=== PATIENT | female | born 1945 | race Hispanic/Latino ===

== ENCOUNTER 2021-03-30 14:40 | Emergency (ER) | payer MEDICARE ==
[~2021-03-30] VITALS: Ht 154.9 cm; Wt 68.0 kg
[2021-03-30] MEDS ORDERED: ACETAMINOPHEN WITH CODEINE 1 TAB TAB PO ONE (20:00)
[2021-03-30] MEDS ORDERED: ONDANSETRON ODT 4MG TAB SL ONE (20:00)
[2021-03-30 20:45] VITALS: BP 138/74
[2021-03-30] MEDS ORDERED: ONDA4TAB10 PO (20:47)
== END 2021-03-30 21:20 | disposition home or self-care (01) ==
LOC: EDH 14:40
DX: S29.011A Strain of muscle and tendon of front wall of thorax, initial encounter (principal); R11.2 Nausea with vomiting, unspecified; R42 Dizziness and giddiness; E11.9 Type 2 diabetes mellitus without complications; M81.0 Age-related osteoporosis without current pathological fracture; Z88.1 Allergy status to other antibiotic agents; Z91.041 Radiographic dye allergy status; Z79.899 Other long term (current) drug therapy; Z85.3 Personal history of malignant neoplasm of breast; Z87.442 Personal history of urinary calculi; W18.39XA Other fall on same level, initial encounter; Y93.89 Activity, other specified; Y92.89 Other specified places as the place of occurrence of the external cause; Y99.8 Other external cause status
CPT/HCPCS: 70450; 71100; 71250; 72125; 74176

== ENCOUNTER 2022-02-03 23:25 | Emergency (ER) | payer MEDICARE ==
[~2022-02-03] VITALS: Ht 154.9 cm; Wt 63.5 kg
[~2022-02-03 23:25] MED LIST: ONDA4TAB10 PO
[2022-02-03] MEDS: DiphenhydrAMINE HCL 50 MG/ML VIAL IV ONE (23:56)
[2022-02-03] MEDS: FAMOTIDINE 20MG VIAL IV ONE ×2 (23:56)
[2022-02-03] MEDS: DiphenhydrAMINE HCL 50 MG/ML VIAL ONE (23:57)
[2022-02-04 00:09] LABS: BASOPHILS % (AUTO) 0.3 % (0.0-5.0); EOSINOPHILS % (AUTO) 2.7 % (0.0-8.0); HEMATOCRIT 34.7 % (36-48); LYMPHOCYTES % (AUTO) 30.4 % (21.0-51.0); MEAN CORPUSCULAR HEMOGLOBIN 29.2 pg (27.0-33.0); MEAN CORPUSCULAR HGB CONC 32.9 g/dL (32.0-36.0); MEAN CORPUSCULAR VOLUME 88.7 fL (79-99); NEUTROPHILS % (AUTO) 60.4 % (40.0-77.0); PLATELET COUNT (AUTO) 263 K/uL (130-400); RED BLOOD CELL COUNT(AUTO) 3.91 MIL/uL (4.00-5.50); RED CELL DISTRIBUTION WIDTH 13.6 % (11.0-15.5); WHITE BLOOD COUNT (AUTO) 6.6 K/uL (4.8-10.8)
[2022-02-04 00:20] LABS: CREATININE 0.9 mg/dL (0.5-1.5); POTASSIUM 3.9 mmol/L (3.5-5.1)
[2022-02-04 00:25] LABS: ALBUMIN 3.2 g/dL (3.5-5.0); TOTAL PROTEIN, SERUM 6.9 g/dL (6.0-8.3)
[2022-02-04] MEDS ORDERED: IOHEXOL 350 MG/ML 100ML INFUS..BTL IV ONE (01:10)
[2022-02-04] MEDS ORDERED: METF-444 PO (01:19)
[2022-02-04] MEDS ORDERED: LOSA50TA64 PO (01:19)
[2022-02-04] MEDS ORDERED: ATOR-2 PO (01:19)
[2022-02-04 01:31] LABS: APPEARANCE,URINE CLOUDY (CLEAR); BILIRUBIN,URINE NEGATIVE (NEGATIVE); COLOR,URINE LIGHT-YELLOW (YELLOW); GLUCOSE, URINE (UA) 200 mg/dL (NEGATIVE); KETONES,URINE NEGATIVE (NEGATIVE); LEUKOCYTE ESTERASE ,URINE 500 Leu/uL (NEGATIVE); NITRATE,URINE 2+ (NEGATIVE); OCCULT BLOOD,URINE SMALL (NEGATIVE); PROTEIN,URINE NEGATIVE (NEGATIVE); UROBILINOGEN,URINE 0.2 mg/dL (0.2-1.0)
[2022-02-04] MEDS: HYDROXYZINE 25 MG TABLET PO ONE (01:33)
[2022-02-04 01:37] LABS: BACTERIA,URINE FEW /HPF (None Seen); MUCUS,URINE RARE LPF (None Seen); SQUAMOUS EPITHELIAL CELL,UR FEW /HPF (0-2); WBC,URINE 51-100 /HPF (0-1)
[2022-02-04] MEDS: CEFTRIAXONE 1G VIAL IVP ONE (01:54)
[2022-02-04 03:35] VITALS: BP 157/71
[2022-02-04] MEDS ORDERED: HYD25 PO (03:40)
== END 2022-02-04 03:49 | disposition home or self-care (01) ==
LOC: EDH 23:25
DX: L29.9 Pruritus, unspecified (principal); T46.6X5A Adverse effect of antihyperlipidemic and antiarteriosclerotic drugs, initial encounter; E11.9 Type 2 diabetes mellitus without complications; I10 Essential (primary) hypertension; E78.5 Hyperlipidemia, unspecified; Z88.8 Allergy status to other drugs, medicaments and biological substances; Z79.899 Other long term (current) drug therapy; Z79.84 Long term (current) use of oral hypoglycemic drugs; Z98.890 Other specified postprocedural states; Y92.89 Other specified places as the place of occurrence of the external cause
CPT/HCPCS: 99285; 96374; 96375 ×2; 82550; 80053; 85025; 87077; 87088; 87186; 81001; 36415; 70450; 71045; 72170; 93005; J1200; J3490; Q9967

== ENCOUNTER 2022-11-08 19:36 | Inpatient (IN) | payer OTHER, MEDICARE ==
[~2022-11-08] VITALS: Ht 154.9 cm; Wt 64.0 kg
[~2022-11-08 19:36] MED LIST changes: +ATOR-2 PO; +HYD25 PO; +LOSA50TA64 PO; +METF-444 PO
[2022-11-08 20:39] LABS: BASOPHILS % (AUTO) 0.3 % (0.0-5.0); EOSINOPHILS % (AUTO) 1.4 % (0.0-8.0); HEMATOCRIT 36.7 % (36-48); LYMPHOCYTES % (AUTO) 22.4 % (21.0-51.0); MEAN CORPUSCULAR HEMOGLOBIN 28.2 pg (27.0-33.0); MEAN CORPUSCULAR HGB CONC 32.2 g/dL (32.0-36.0); MEAN CORPUSCULAR VOLUME 87.8 fL (79-99); MONOCYTES % (AUTO) 4.9 % (3.0-13.0); NEUTROPHILS % (AUTO) 70.8 % (40.0-77.0); PLATELET COUNT (AUTO) 291 K/uL (130-400); RED BLOOD CELL COUNT(AUTO) 4.18 MIL/uL (4.00-5.50); RED CELL DISTRIBUTION WIDTH 14.1 % (11.0-15.5); WHITE BLOOD COUNT (AUTO) 8.8 K/uL (4.8-10.8)
[2022-11-08 20:50] LABS: INR 0.93 (0.85-1.15); POTASSIUM 4.1 mmol/L (3.5-5.1); PROTHROMBIN TIME 10.3 SEC (9.6-11.6)
[2022-11-08 20:51] LABS: PARTIAL THROMBOPLASTIN TIME 28.6 SEC (26.3-35.5)
[2022-11-08 20:54] LABS: ALBUMIN 3.5 g/dL (3.5-5.0); TOTAL PROTEIN, SERUM 7.7 g/dL (6.0-8.3)
[2022-11-08 21:27] LABS: APPEARANCE,URINE CLEAR (CLEAR); BILIRUBIN,URINE NEGATIVE (NEGATIVE); COLOR,URINE LIGHT-YELLOW (YELLOW); GLUCOSE, URINE (UA) 500 mg/dL (NEGATIVE); KETONES,URINE NEGATIVE (NEGATIVE); LEUKOCYTE ESTERASE ,URINE NEGATIVE Leu/uL (NEGATIVE); NITRATE,URINE NEGATIVE (NEGATIVE); OCCULT BLOOD,URINE SMALL (NEGATIVE); PH,URINE 6.5 (5.0-8.0); PROTEIN,URINE NEGATIVE (NEGATIVE); UROBILINOGEN,URINE 0.2 mg/dL (0.2-1.0)
[2022-11-08 21:30] LABS: MUCUS,URINE RARE LPF (None Seen)
[2022-11-09] MEDS ORDERED: ACETAMINOPHEN 650 MG SUPPOSITORY RC PRN (03:00)
[2022-11-09] MEDS ORDERED: ACETAMINOPHEN 325 MG TAB PO PRN (03:00)
[2022-11-09] MEDS ORDERED: ONDANSETRON 4MG INJ IVP PRN (05:00)
[2022-11-09] MEDS ORDERED: DEXTROSE 50%-WATER 50 ML DISP.SYRIN IV PRN (05:00)
[2022-11-09] MEDS ORDERED: MAGNESIUM 2GM PREMIX 50ML 50 ML IV PRN (05:00)
[2022-11-09] MEDS ORDERED: POTASSIUM CHLORIDE 10% ELIXIR 20 MEQ/15 ML UDCUP PO PRN (05:00)
[2022-11-09] MEDS ORDERED: KCL 20 MEQ ERTAB PO PRN (05:00)
[2022-11-09] MEDS ORDERED: GLUCAGON 1MG KIT 1 MG ML IM PRN (05:00)
[2022-11-09] MEDS ORDERED: POTASSIUM CHLORIDE 20MEQ/100ML 100 ML IV PRN (05:00)
[2022-11-09] MEDS ORDERED: LACTULOSE 20 GM/30 ML UDCUP PO PRN (05:00)
[2022-11-09] MEDS ORDERED: INSULIN HUMULIN R 100 UNIT/ML 3ML SQ SCH (07:30)
[2022-11-09] MEDS: INSULIN HUMULIN R 100 UNIT/ML 3ML SQ SCH ×4 (07:30→20:40)
[2022-11-09] MEDS: ASPIRIN 81MG CHEW TAB PO SCH (08:52)
[2022-11-09] MEDS: POLYETHYLENE GLYCOL 3350 17 GM POWD.PACK PO SCH (08:52)
[2022-11-09] MEDS: FAMOTIDINE 20MG TAB PO SCH (08:52)
[2022-11-09] MEDS: CEFTRIAXONE 1G VIAL IV SCH (08:52)
[2022-11-09] MEDS: ENOXAPARIN SODIUM 40 MG/0.4 ML SYRINGE SQ SCH (08:52)
[2022-11-09] MEDS: CLOPIDOGREL 75MG TAB PO SCH (08:52)
[2022-11-09 15:30] VITALS: BP 145/68
[2022-11-09 16:28] VITALS: BP 142/61
[2022-11-09] MEDS ORDERED: SULF1TAB42 PO (16:47)
[2022-11-09 19:58] VITALS: BP 146/65
[2022-11-09] MEDS: SIMVASTATIN 20 MG TABLET PO SCH (20:39)
[2022-11-10] VITALS (7 sets, daily range): BP systolic 111–169; BP diastolic 52–83
[2022-11-10] MEDS: INSULIN HUMULIN R 100 UNIT/ML 3ML SQ SCH ×4 (05:15→20:31)
[2022-11-10 05:41] LABS: BASOPHILS % (AUTO) 0.5 % (0.0-5.0); EOSINOPHILS % (AUTO) 3.4 % (0.0-8.0); HEMATOCRIT 35.3 % (36-48); LYMPHOCYTES % (AUTO) 26.5 % (21.0-51.0); MEAN CORPUSCULAR HEMOGLOBIN 28.2 pg (27.0-33.0); MEAN CORPUSCULAR HGB CONC 31.7 g/dL (32.0-36.0); MEAN CORPUSCULAR VOLUME 88.9 fL (79-99); MONOCYTES % (AUTO) 7.5 % (3.0-13.0); NEUTROPHILS % (AUTO) 61.8 % (40.0-77.0); PLATELET COUNT (AUTO) 280 K/uL (130-400); RED BLOOD CELL COUNT(AUTO) 3.97 MIL/uL (4.00-5.50); RED CELL DISTRIBUTION WIDTH 14.1 % (11.0-15.5); WHITE BLOOD COUNT (AUTO) 6.2 K/uL (4.8-10.8)
[2022-11-10 06:10] LABS: CREATININE 0.9 mg/dL (0.5-1.5); MAGNESIUM 2.1 mg/dL (1.80-2.40); POTASSIUM 4.4 mmol/L (3.5-5.1)
[2022-11-10 06:28] LABS: HEMOGLOBIN A1C 6.6 % (4.0-6.0)
[2022-11-10] MEDS: FAMOTIDINE 20MG TAB PO SCH (09:36)
[2022-11-10] MEDS: METFORMIN HCL 500 MG TABLET PO SCH ×2 (09:36→20:31)
[2022-11-10] MEDS: ASPIRIN 81MG CHEW TAB PO SCH (09:36)
[2022-11-10] MEDS: POLYETHYLENE GLYCOL 3350 17 GM POWD.PACK PO SCH (09:36)
[2022-11-10] MEDS: LOSARTAN 50 MG TABLET PO SCH (09:36)
[2022-11-10] MEDS: CLOPIDOGREL 75MG TAB PO SCH (09:37)
[2022-11-10] MEDS: ENOXAPARIN SODIUM 40 MG/0.4 ML SYRINGE SQ SCH (09:38)
[2022-11-10] MEDS: CEFTRIAXONE 1G VIAL IV SCH (09:38)
[2022-11-10] MEDS: SIMVASTATIN 20 MG TABLET PO SCH (20:32)
[2022-11-10] MEDS ORDERED: ATORVASTATIN 40 MG TABLET PO SCH (21:00)
[2022-11-10] MEDS ORDERED: NON-FORMULARY MEDICATION 1 EACH (Atorvastatin Calcium 80 MG) PO SCH (21:00)
[2022-11-11 04:01] VITALS: BP 122/56
[2022-11-11] MEDS: INSULIN HUMULIN R 100 UNIT/ML 3ML SQ SCH ×2 (05:14→11:05)
[2022-11-11 08:00] VITALS: BP 133/60
[2022-11-11] MEDS ORDERED: ASPI-1005 PO (08:59)
[2022-11-11] MEDS ORDERED: POLY17PO4 PO (08:59)
[2022-11-11] MEDS ORDERED: CLOP-31 PO (08:59)
[2022-11-11] MEDS: ENOXAPARIN SODIUM 40 MG/0.4 ML SYRINGE SQ SCH (09:52)
[2022-11-11] MEDS: CEFTRIAXONE 1G VIAL IV SCH (09:53)
[2022-11-11] MEDS: ASPIRIN 81MG CHEW TAB PO SCH (09:53)
[2022-11-11] MEDS: METFORMIN HCL 500 MG TABLET PO SCH (09:53)
[2022-11-11] MEDS: FAMOTIDINE 20MG TAB PO SCH (09:53)
[2022-11-11] MEDS: CLOPIDOGREL 75MG TAB PO SCH (09:53)
[2022-11-11] MEDS: POLYETHYLENE GLYCOL 3350 17 GM POWD.PACK PO SCH (09:53)
[2022-11-11] MEDS: LOSARTAN 50 MG TABLET PO SCH (09:53)
[2022-11-11 11:00] VITALS: BP 132/61
== END 2022-11-11 12:21 | disposition home or self-care (01) | DRG 65 ==
LOC: EDH 19:36 → EDHIP 11-09 02:37 → 2AH 11-09 14:55
PROVIDERS: ADMIT Internal Medicine Critical Care Medicine; ATTEND Internal Medicine Critical Care Medicine
DX: I63.89 Other cerebral infarction (principal); N30.00 Acute cystitis without hematuria; R47.01 Aphasia; I10 Essential (primary) hypertension; E78.00 Pure hypercholesterolemia, unspecified; E11.9 Type 2 diabetes mellitus without complications; R29.702 NIHSS score 2; D64.9 Anemia, unspecified; Z79.02 Long term (current) use of antithrombotics/antiplatelets; Z79.82 Long term (current) use of aspirin; Z86.73 Personal history of transient ischemic attack (TIA), and cerebral infarction without residual deficits; Z90.12 Acquired absence of left breast and nipple; Z91.041 Radiographic dye allergy status
CPT/HCPCS: 36415; 70450; 70544; 70547; 70551; 71045; 80048; 80053; 80061; 81001; 82948; 83036; 83735; 84100; 84484; 85025; 85610; 85730; 87088; 92522; 92610; 93005; 93306; 97039; G0378; J0696; J1650; J1815